=== PATIENT | female | born 1990 | race African-American/Black ===

== ENCOUNTER 2017-02-06 21:54 | Emergency (ER) | payer OTHER ==
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
[~2017-02-06 21:54] MED LIST: BENTYL20 MG PO; PROVENTIL INH0.5 ML; ULTRAM PO
== END 2017-02-06 23:30 | disposition home or self-care (01) ==
LOC: SED 21:54
DX: S06.0X9A Concussion with loss of consciousness of unspecified duration, initial encounter (principal); V43.52XA Car driver injured in collision with other type car in traffic accident, initial encounter
CPT/HCPCS: 70450; 99284